=== PATIENT | male | born 1960 | race Caucasian/White ===

== ENCOUNTER → 2016-08-02 | Outpatient (CLI) | payer OTHER ==
[~2016-08-02] MED LIST: ANTIBIOTIC O500 U/GM TP; ASPIRIN CHEWABL81 MG PO; AZITHROMYCIN250 MG PO; CEPHALEXIN500 M1 PO; CYMBALTA60 MG PO; DOXYCYCLINE100 M2 PO; HYDROCODONE BIT1 T11 PO; LIPITOR20 MG PO; LYRICA75 MG PO; NAPROXEN500 MG PO; PAXIL20 MG PO; PREDNISONE10 MG PO; PREDNISONE5 MG PO; REGLAN10 MG PO; SKELAXIN800 MG PO; VICODIN 5/500 505 MG PO; VICODIN ES 7501 TA1 PO; XODOL PO; ZANTAC150 MG PO
[2016-08-02 12:34] LABS: HEMATOCRIT 48.5 % (42.0-52.0); MEAN CELL VOLUME 91.7 fl (80.0-94.0); MEAN CORPUSCULAR HGB 32.1 pg (27.0-31.0); MEAN CORPUSCULAR HGB CONC 35.1 g/dl (33.0-37.0); PLATELET COUNT AUTOMATED 277 10*3/uL (130-400); RED BLOOD COUNT 5.29 10*6/uL (4.50-5.90); RED CELL DISTRI WIDTH 12.5 % (0-14.5); WHITE BLOOD COUNT 7.2 10*3/uL (4.8-10.8)
[2016-08-02 13:00] LABS: ATYPICAL LYMPHS 1 % (0-0); EOSINOPHIL # 0.1 10*3/uL (0-0.4); EOSINOPHILS 1 % (1-4); LYMPHOCYTE # 1.9 10*3/uL (1.3-4.4); MONOCYTE # 0.3 10*3/uL (0.1-1.0); NEUTROPHILS 69 % (47-73); TOTAL CELLS COUNTED 100 #CELLS
[2016-08-02 13:01] LABS: PLATELET SUFFICIENCY NORMAL (NORMAL)
[2016-08-02 13:06] LABS: ALBUMIN 4.1 gm/dl (3.1-4.5); ALKALINE PHOSPHATASE 51 U/L (45-117); BILIRUBIN, TOTAL 0.5 mg/dl (0.2-1.0); BUN 10 mg/dl (7-24); CARBON DIOXIDE 29 mmol/L (21-32); CHLORIDE 106 mmol/L (98-107); CHOLESTEROL 147 mg/dL (<200); EST GLOM FILT AFRICAN AMERICAN > 60 ml/min; FREE T4 1.32 ng/dl (0.76-1.46); GLUCOSE 98 mg/dL (65-99); HDL CHOLESTEROL 54 mg/dl (40-60); LDL CHOLESTEROL 81 mg/dL (9-159); POTASSIUM 4.4 mmol/L (3.5-5.1); SGOT/AST 16 IU/L (3-35); SGPT/ALT 25 U/L (12-78); SODIUM 143 mmol/L (136-145); TOTAL PROTEIN 7.1 gm/dL (6.4-8.2); TRIGLYCERIDES 62 mg/dl (<150); VLDL CHOLESTEROL 12 mg/dL (6-40)
[2016-08-02 13:11] LABS: THYROID STIM HORMONE (HS) 0.887 uIU/ml (0.358-4.75)
== END | disposition home or self-care (01) ==
LOC: LAB 12:08
PROVIDERS: Internal Medicine
DX: I10 Essential (primary) hypertension (principal); F32.9 Major depressive disorder, single episode, unspecified; E78.5 Hyperlipidemia, unspecified

== ENCOUNTER → 2017-02-22 | Day surgery (SDC) | payer OTHER ==
[~2017-02-22] VITALS: Ht 175.2 cm; Wt 72.6 kg
[~2017-02-22] MED LIST changes: +AMBIEN5 MG PO; +BUPROPION HCL150 M1 PO; +SKELAXIN800 M1 PO; +VICODIN HP 10-1 EACH PO; +ZESTRIL5 MG PO
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
[2017-02-22 10:01] VITALS: BP 127/72
[2017-02-22 11:10] VITALS: BP 95/51
[2017-02-22 11:25] VITALS: BP 90/56
[2017-02-22 11:40] VITALS: BP 108/73
== END | disposition home or self-care (01) ==
LOC: SDC 02-21 13:15
DX: Z12.11 Encounter for screening for malignant neoplasm of colon (principal); K57.30 Diverticulosis of large intestine without perforation or abscess without bleeding; Z90.49 Acquired absence of other specified parts of digestive tract; Z98.890 Other specified postprocedural states; I10 Essential (primary) hypertension; F32.9 Major depressive disorder, single episode, unspecified; Z87.891 Personal history of nicotine dependence; I25.10 Atherosclerotic heart disease of native coronary artery without angina pectoris; E78.5 Hyperlipidemia, unspecified; G89.4 Chronic pain syndrome; Z79.899 Other long term (current) drug therapy; Z82.49 Family history of ischemic heart disease and other diseases of the circulatory system

== ENCOUNTER → 2020-08-18 | Outpatient (CLI) | payer OTHER, MEDICARE | END | disposition home or self-care (01) | LOC: RAD 11:12 | PROVIDERS: ATTEND Internal Medicine | DX: M19.031 Primary osteoarthritis, right wrist (principal); M25.731 Osteophyte, right wrist ==

== ENCOUNTER → 2020-10-15 | Day surgery (SDC) | payer OTHER, MEDICARE ==
[~2020-10-15] VITALS: Ht 175.2 cm; Wt 74.8 kg
[~2020-10-15] MED LIST changes: +ASPIRIN ADULT L81 M1 PO; +COREG12.5 M1 PO; +HYDROCODONE-AC1 EACH PO; +PERCOCET 5-3251 EACH PO
[2020-10-15 06:30] VITALS: BP 136/64
[2020-10-15 07:49] VITALS: BP 97/52
[2020-10-15 08:04] VITALS: BP 102/66
[2020-10-15 08:18] VITALS: BP 107/70
== END | disposition home or self-care (01) ==
LOC: SDC 10-06 11:00
PROVIDERS: ATTEND Surgery
DX: C44.41 Basal cell carcinoma of skin of scalp and neck (principal); I10 Essential (primary) hypertension; F32.9 Major depressive disorder, single episode, unspecified; Z87.891 Personal history of nicotine dependence; Z98.890 Other specified postprocedural states; Z20.822 Contact with and (suspected) exposure to COVID-19

== ENCOUNTER → 2020-10-19 | Outpatient (CLI) | payer OTHER, MEDICARE | END | disposition home or self-care (01) | LOC: MRI 09:05 | PROVIDERS: ATTEND Orthopaedic Surgery | DX: S66.110D Strain of flexor muscle, fascia and tendon of right index finger at wrist and hand level, subsequent encounter (principal); M19.041 Primary osteoarthritis, right hand; M85.631 Other cyst of bone, right forearm; G56.01 Carpal tunnel syndrome, right upper limb; M89.8X3 Other specified disorders of bone, forearm; Y99.8 Other external cause status; X58.XXXA Exposure to other specified factors, initial encounter; Y93.89 Activity, other specified; Y92.89 Other specified places as the place of occurrence of the external cause ==

== ENCOUNTER → 2020-10-29 | Day surgery (SDC) | payer OTHER, MEDICARE ==
[2020-10-26 12:47] LABS: BUN 13 mg/dl (7-24); CHLORIDE 106 mmol/L (98-107); POTASSIUM 4.2 mmol/L (3.5-5.1); SODIUM 140 mmol/L (136-145)
[~2020-10-29] VITALS: Ht 175.2 cm; Wt 74.8 kg
[2020-10-29 08:35] VITALS: BP 131/81
[2020-10-29 12:26] VITALS: BP 93/57
[2020-10-29 12:41] VITALS: BP 115/73
[2020-10-29 12:56] VITALS: BP 119/79
== END | disposition home or self-care (01) ==
LOC: SDC 10-26 12:15
PROVIDERS: ATTEND Orthopaedic Surgery
DX: G56.01 Carpal tunnel syndrome, right upper limb (principal); I10 Essential (primary) hypertension; F32.9 Major depressive disorder, single episode, unspecified; Z87.891 Personal history of nicotine dependence; Z98.890 Other specified postprocedural states; Z79.899 Other long term (current) drug therapy; Z20.822 Contact with and (suspected) exposure to COVID-19

== ENCOUNTER → 2020-12-10 | Day surgery (SDC) | payer OTHER, MEDICARE ==
[~2020-12-10] VITALS: Ht 175.2 cm; Wt 74.8 kg
[2020-12-10 06:49] VITALS: BP 132/77
[2020-12-10 07:56] VITALS: BP 93/60
[2020-12-10 08:11] VITALS: BP 103/66
[2020-12-10 08:26] VITALS: BP 106/62
== END | disposition home or self-care (01) ==
LOC: SDC 12-07 08:00
PROVIDERS: ATTEND Orthopaedic Surgery
DX: G56.03 Carpal tunnel syndrome, bilateral upper limbs (principal); I10 Essential (primary) hypertension; F32.9 Major depressive disorder, single episode, unspecified; Z87.891 Personal history of nicotine dependence; J45.909 Unspecified asthma, uncomplicated; Z98.890 Other specified postprocedural states; Z79.899 Other long term (current) drug therapy; Z20.822 Contact with and (suspected) exposure to COVID-19

== ENCOUNTER → 2021-04-15 | Outpatient (CLI) | payer OTHER, MEDICARE | END | disposition home or self-care (01) | LOC: COVID19 14:56 | PROVIDERS: ATTEND Student in an Organized Health Care Education/Training Program | DX: Z11.52 Encounter for screening for COVID-19 (principal) ==